=== PATIENT | male | born 1985 | race African-American/Black ===

== ENCOUNTER 2020-07-27 18:21 | Emergency (ER) | payer OTHER ==
[~2020-07-27] VITALS: Ht 203.2 cm; Wt 133.4 kg
[~2020-07-27 18:21] MED LIST: BENZTROPINE ME0.5 MG PO; CLONAZEPAM1 M1 PO; COLACE100 MG ORAL; HALOPERIDO100 MG/12 IM; LAMOTRIGINE150 MG PO; MIRALAX17 G2 ORAL; OLANZAPINE5 MG ORAL
[2020-07-27 18:31] VITALS: BP 129/74
--- NOTE | 2020-07-27 18:31 | NUR ---
ED Nurse Note: [facility]/o facial swelling and tooth abscess since yesterday. Pt has hx of mild intellectual disability. Denies fever. No SOB. Rehab center staff at bedside.
--- NOTE | 2020-07-27 18:56 | Emergency Room Report ---
History of Present Illness General Chief Complaint: Toothache Source: Patient, Caregiver Present Illness HPI 35 YO male presents today with tooth pain for 1 week. He states it worsened today. Quality is throbbing. Severity mild. Rechecker at bedside states that he has been in to see a dentist but they ordered blood work first and they will be following up with him to remove his tooth. He has used viscous lidocaine and ibuprofen to improve the pain. He states he does not know what makes it worse. Denies any fevers, chills, nausea, or vomiting. Denies any discharge from tooth area. Other associated symptoms are midly swollen face on left side. 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 COVID-19 Screening: Negative COVID-19 COVID-19 Testing Source: 5 days Patient History Past Medical History: see triage record Past Surgical History: other - no pertanent surgical history Social History: Denies: smoking, alcohol use, drug use Nursing Documentation-[facility] Hx Seizures: Yes Review of Systems Respiratory: Reports: no symptoms Cardiovascular: Reports: no symptoms Gastrointestinal: Reports: no symptoms Genitourinary: Reports: no symptoms Musculoskeletal: Reports: no symptoms Skin: Reports: no symptoms Neurological: Reports: no symptoms All Other Systems: negative except mentioned in HPI Physical Exam Vital Signs Date Time Temp Pulse Resp B/P (MAP) Pulse Ox O2 Delivery O2 Flow Rate FiO2 07/27/20 18:25 98.4 66 16 129/74 (92) 96 Room Air Sp02 EP Interpretation: reviewed, normal General Appearance: no apparent distress, alert, GCS 15, non-toxic Head: normocephalic, atraumatic Eyes: bilateral eye normal inspection ENT: hearing grossly normal, EOM grossly intact, normal pharynx, no angioedema, normal voice, TMs + canals normal, uvula midline, moist mucus membranes, other - evidence of multiple cavities, in area of reported pain there is no fluctuance, no erythema or discharge. Mild swelling of the left maxillary area, no tenderness Neck: full range of motion, no meningismus, supple/symm/no masses, other - no cervical lymphadenopathy Respiratory: chest non-tender, lungs clear, normal breath sounds, speaking full sentences Cardiovascular #1: regular rate, rhythm Gastrointestinal: non tender, soft, non-distended, no guarding, no rebound Musculoskeletal: back normal, gait/station normal, non-tender Neurologic: alert, oriented x3, sensory intact, responsive, speech normal - to patient's baseline Psychiatric: judgement/insight normal, mood/affect normal, no suicidal/homicidal ideation Skin: normal color, normal inspection Lymphatic: no adenopathy Medical Decision Making PA Attestation Dr. Brady Is my supervising Physician whom patient management has been discussed with. Diagnostic Impression: Primary Impression: Pericoronitis ER Course Pt. presents to the ED c/o tooth pain Ddx considered but are not limited to dental abscess, pericoronitis, ludwigs angina, airway compromise, cellulitis, pharyngitis Vital signs: are WNL, pt. is afebrile H&PE are most consistent with pericoronitis. there is no evidence of fluctuance or purulent drainage, no evidence of abscess at this time. Pt has patent airway, able to tolerate PO. No evidence of jersey angina at this time. Mild swelling of the left maxillary area most likely secondary to the inflammation from tooth pain. ORDERS: none required at this time, the diagnosis is clinical ED INTERVENTIONS: None required at this time. DISCHARGE: At this time pt. is stable for d/c to home. He was advised to f/u with a dentist and strict return precautions given. Will provide printed patient care instructions, and any necessary prescriptions. Care plan and follow up instructions have been discussed with the patient prior to discharge. Last Vital Signs Date Time Temp Pulse Resp B/P (MAP) Pulse Ox O2 Delivery O2 Flow Rate FiO2 07/27/20 18:31 98.4 66 16 129/74 96 Room Air Status: unchanged Disposition: HOME, SELF-CARE Condition: Stable Scripts Ibuprofen* (MOTRIN*) 600 Mg Tablet 600 MG ORAL Q8H PRN, #30 TAB 0 Refills Prov: Prachi Haas PA-C 07/27/20 Acetaminophen* (TYLENOL EXTRA STRENGTH*) 500 Mg Tablet 500 MG ORAL Q8H PRN, #30 TAB 0 Refills Prov: Prachi Haas PA-C 07/27/20 Amoxicillin/Potassium Clav 875-125* (AUGMENTIN 875-125 TABLET*) 1 Each Tablet 1 TAB ORAL TWICE A DAY for 7 Days, #14 TAB Prov: Prachi Haas PA-C 07/27/20 Patient Instructions: Dental Pain Additional Instructions: Take medications as directed. Follow up with a dentist for further evaluation. Follow up with a Primary Care Provider in 3-5 days, even if your symptoms have resolved. FOLLOW UP WITH A RAT FARMER FOR FURTHER OUTPATIENT EVALUATION AND BRING YOUR EKG WITH YOU Return sooner to ED if new symptoms occur, or current symptoms become worse. - Please note that this Emergency Department Report was dictated using [employer] plan compliance director technology software, occasionally this can lead to erroneous entry secondary to interpretation by the dictation equipment. Prachi Haas PA-C Jul 27, 2020 18:56
[2020-07-27] MEDS ORDERED: IBUPROFEN600 M1 ORAL (19:00)
[2020-07-27] MEDS ORDERED: AUGMENTIN 875-1 EAC1 ORAL (19:00)
[2020-07-27] MEDS ORDERED: TYLENOL EXTRA500 MG ORAL (19:00)
[2020-07-27 19:21] VITALS: BP 125/72
--- NOTE | 2020-07-27 19:21 | NUR ---
ER DISCHARGE NOTE: Patient is cleared to be discharged per ERMD, pt is aox4, on room air, with stable vital signs. pt was given dc and prescription instructions, pt and lube man was able to verbalize understanding, pt id band removed. pt is able to ambulate with steady gait. pt took all belongings. pt stable upon discharge.
== END 2020-07-27 19:25 | disposition home or self-care (01) ==
LOC: EMR 19:14
DX: K05.30 Chronic periodontitis, unspecified (principal); G40.909 Epilepsy, unspecified, not intractable, without status epilepticus; Z79.899 Other long term (current) drug therapy
CPT/HCPCS: 99282

== ENCOUNTER 2020-07-30 09:02 | Emergency (ER) | payer OTHER ==
[~2020-07-30] VITALS: Ht 205.7 cm; Wt 127.0 kg
[~2020-07-30 09:02] MED LIST changes: +AUGMENTIN 875-1 EAC1 ORAL; +IBUPROFEN600 M1 ORAL; +TYLENOL EXTRA500 MG ORAL
--- NOTE | 2020-07-30 09:15 | NUR ---
ED Nurse Note: Pt walked into ED for L foot ulcer that has recently opened. It has no drainage. Pt is alert and orientedx4, ambualtory. Mom is present in room. Pt has been seen by ERMD. He denies pain.
[2020-07-30] MEDS ORDERED: HM DOUBLE ANT28.4 G1 TP (09:18)
--- NOTE | 2020-07-30 09:28 | Emergency Room Report ---
History of Present Illness General Chief Complaint: Lower Extremity Injury Source: Patient Present Illness HPI Patient is a 35-year-old male past medical history of schizoaffective disorder, obesity and seizure disorder who was brought in by his caregiver for ulcer to the bottom of his left foot. Patient has a chronic ulcer to the bottom of his foot that has been treated by a commercial solar sales consultant. Patient's caregiver states that several weeks ago it opened up again. Patient is supposed to not bear weight on it when it is open but he has been and also got it wet. Patient's caregiver denies any fever or chills. They deny any trauma. Patient states that it hurts when he stands on it. Allergies: Coded Allergies: No Known Allergies (Unverified , 12/14/18) COVID-19 Screening Contact w/high risk pt: No Experienced COVID-19 symptoms?: No COVID-19 Testing performed TRANSIT OPERATOR: No Patient History Reviewed Nursing Documentation: PMH: Agreed; PSxH: Agreed Nursing Documentation-PMH Past Medical History: No History, Except For Hx Seizures: Yes Review of Systems All Other Systems: negative except mentioned in HPI Physical Exam Vital Signs Date Time Temp Pulse Resp B/P (MAP) Pulse Ox O2 Delivery O2 Flow Rate FiO2 07/30/20 09:05 97.5 76 16 112/76 (88) 98 Room Air Sp02 EP Interpretation: reviewed, normal General Appearance: no apparent distress, alert, GCS 15, non-toxic Head: normocephalic, atraumatic Eyes: bilateral eye normal inspection, bilateral eye PERRL ENT: hearing grossly normal, normal pharynx, no angioedema, normal voice Neck: full range of motion, supple/symm/no masses Respiratory: chest non-tender, lungs clear, normal breath sounds, speaking full sentences Cardiovascular #1: regular rate, rhythm, no edema Gastrointestinal: normal bowel sounds, non tender, soft, non-distended, no guarding, no rebound, overweight Rectal: deferred Musculoskeletal: other - Left plantar foot ulcer where first metatarsal and cuneiform bone meet with no discharge or surrounding erythema or crepitus, normal range of motion 2+ pedal pulses and cap refill is immediate Neurologic: job spotter III-XII nml as tested Psychiatric: depressed affect Skin: no rash Medical Decision Making Diagnostic Impression: Primary Impression: Chronic foot ulcer ER Course Local wound care was performed. Wound was cleaned it has no signs of infection. Topical antibiotics have been put in place and a nonstick dressing was applied. This was wrapped with Kerlix and patient was given a postop surgical shoe. Patient advised to keep it dry, follow-up with podiatry and try to not bear weight on it. This was all discussed in front of the patient's caregiver as well. After discussing with the patient and his caregiver risks and benefits of further diagnostics, treatment plans, as well as indications for and risks of admission, the patient is agreeable to being discharged home. I have explained that their evaluation and treatment in the emergency department today is an important step towards them achieving better health but that their evaluation today is not intended to replace further evaluation and treatment by a physician in their local clinic. I have explained that while the current findings suggest no immediate life threatening emergency they will require further evaluation and treatment by a physician of their choice in their area. They understand that it will be necessary for them to review the final reports of their ED visit with their clinic physician. We have reviewed indications for return to the Emergency Department. I have explained that additional time may need to pass and/or additional testing as an outpatient may be necessary before a definitive diagnosis can be made. They tell me they are willing to follow up as instructed within the timeframe I recommend. They appear to understand what we discussed. Additionally they understand that if they are unable to be seen by an outpatient physician they are welcome, and in fact should, return to the Emergency Department for a repeat evaluation. The patient is stable at time of discharge. Last Vital Signs Date Time Temp Pulse Resp B/P (MAP) Pulse Ox O2 Delivery O2 Flow Rate FiO2 07/30/20 09:05 97.5 76 16 112/76 (88) 98 Room Air Disposition: HOME, SELF-CARE Condition: Stable Scripts Bacitracin Zinc/Polymyx B Sulf (HM DOUBLE ANTIBIOTIC OINTMENT) 28.4 Gm Oint...g. 28.4 GM TP BID for 30 Days, GM Prov: Norma Zaragoza M.D. 07/30/20 Referrals: [facility] Patient Instructions: Skin Ulcer Additional Instructions: The patient was provided with discharge instructions, notified to follow-up with a primary care doctor and or specialist in the next 24-48 hours, and to return to the ED if they have worsening of their symptoms. Please note that this report is being documented using [employer] technology. This can lead to erroneous entry secondary to incorrect interpretation by the dictating instrument. Norma Zaragoza M.D. Jul 30, 2020 09:28
[2020-07-30] MEDS ORDERED: Bacitracin Oint 15gm Tube TOPIC SCH (09:30)
--- NOTE | 2020-07-30 09:35 | NUR ---
ER DISCHARGE NOTE: Patient is cleared to be discharged per ERMD, pt is aox4, on room air, with stable vital signs. pt was given dc and prescription instructions, pt was able to verbalize understanding, pt id band removed. pt is able to ambulate with steady gait. pt took all belongings. Gauze, bacitracin, and telfa, and boot applied to L foot. Pt instructed regarding wound care.
[2020-07-30 09:36] VITALS: BP 117/78
== END 2020-07-30 09:37 | disposition home or self-care (01) ==
LOC: EMR 09:15
DX: L97.529 Non-pressure chronic ulcer of other part of left foot with unspecified severity (principal); F25.9 Schizoaffective disorder, unspecified
CPT/HCPCS: 99282